=== PATIENT | male | born 1985 | race Caucasian/White ===

== ENCOUNTER 2020-10-02 11:29 | Outpatient (REF) | payer OTHER, SELFPAY ==
--- NOTE | 2020-10-02 12:00 | XR_ITS ---
EXAMINATION: XR LUMBAR SPINE XR ELBOW, RIGHT CLINICAL INFORMATION: Low back pain and right elbow pain. COMPARISON: None TECHNIQUE: 3 views lumbar spine and 3 views right elbow. FINDINGS: LUMBAR SPINE: There is normal lumbar lordosis. The vertebral heights, alignment and disc heights are normal. No visible acute fracture, dislocation or subluxation seen. No lytic or sclerotic process seen. Bilateral SI joints are symmetrical and normal. Minimal superior endplates spondylosis L3 vertebra. There is mild wedging of the T12 vertebra of indeterminate age. RIGHT ELBOW: There is no visible acute fracture, dislocation or subluxation. No abnormal joint effusion seen. The soft tissues are normal. XR/XR lumbar spine 2-3V IMPRESSION: 1. Unremarkable lumbar spine exam. 2. Unremarkable right elbow exam.
--- NOTE | 2020-10-02 12:00 | XR_ITS ---
EXAMINATION: XR LUMBAR SPINE XR ELBOW, RIGHT CLINICAL INFORMATION: Low back pain and right elbow pain. COMPARISON: None TECHNIQUE: 3 views lumbar spine and 3 views right elbow. FINDINGS: LUMBAR SPINE: There is normal lumbar lordosis. The vertebral heights, alignment and disc heights are normal. No visible acute fracture, dislocation or subluxation seen. No lytic or sclerotic process seen. Bilateral SI joints are symmetrical and normal. Minimal superior endplates spondylosis L3 vertebra. There is mild wedging of the T12 vertebra of indeterminate age. RIGHT ELBOW: There is no visible acute fracture, dislocation or subluxation. No abnormal joint effusion seen. The soft tissues are normal. XR/XR elbow RT 2V IMPRESSION: 1. Unremarkable lumbar spine exam. 2. Unremarkable right elbow exam.
[2020-10-02 12:06] LABS: MANUAL DIFF FLAG NO
[2020-10-02 12:13] LABS: Basophils Percent Auto 0.4 % (0-2); Eosinophils Absolute Auto 0.1 X10*3/uL (0.0-0.4); Hematocrit 47.7 % (42-52); Hemoglobin 15.6 g/dl (14.0-18.0); Imm Gran Abs Auto 0.06 X10*3/uL (0.00-0.03); Imm Gran Pct Auto 0.5 % (0.0-0.4); Lymphocytes Absolute Auto 2.5 X10*3/uL (1.2-4.9); Lymphocytes Percent Auto 22.1 % (20-40); Mean Corpuscular HGB Conc 32.7 g/dl (31.0-36.0); Mean Corpuscular Hemoglobin 28.6 pg (27.0-33.0); Mean Corpuscular Volume 87.5 fL (80-98); Mean Platelet Volume 10.9 fL (9.4-12.4); Monocytes Percent Auto 8.9 % (2-11); Neutrophils Absolute Auto 7.4 X10*3/uL (2.0-8.3); Neutrophils Percent Auto 67.1 % (45-73); Platelet Count 200 X10*3/uL (160-400); Red Blood Count 5.45 X10*6/uL (4.60-5.80); Red Cell Distribution Width 12.7 % (11.0-16.0); White Blood Count 11.1 X10*3/uL (4.8-10.8)
[2020-10-02 12:40] LABS: Alanine Aminotransferase 17 U/L (0-40); Albumin Level 4.3 g/dL (3.5-5.0); Alkaline Phosphatase 91 U/L (39-117); Anion Gap 12 (12-20); Aspartate Amino Transferase 13 U/L (5-37); Bilirubin Total 0.6 mg/dL (0.0-1.0); Blood Urea Nitrogen 10 mg/dL (9-16); Calcium 9.2 mg/dL (8.4-10.2); Carbon Dioxide 28 mmol/L (22-29); Chloride 105 mmol/L (96-108); Cholesterol 177 mg/dL; Estimated Glomerular Filt Rate > 60; Glucose Fasting 85 mg/dL (60-99); HDL Cholesterol 31 mg/dL; LDL Cholesterol Calculated 101 mg/dl; Potassium 4.6 mmol/l (3.3-5.1); Sodium 140 mmol/L (135-145); Triglycerides 225 mg/dL
[2020-10-02 13:17] LABS: Thyroid Stimulating Hormone 0.36 uIU/mL (0.32-4.0)
== END 2020-10-02 11:30 | disposition home or self-care (01) ==
LOC: HO.LAB 11:29
PROVIDERS: Visit Provider Internal Medicine
DX: Z00.00 Encounter for general adult medical examination without abnormal findings (principal); E11.9 Type 2 diabetes mellitus without complications; E03.9 Hypothyroidism, unspecified; M25.521 Pain in right elbow; M54.5 Low back pain
CPT/HCPCS: 36415; 72100; 73070; 80053; 80061; 84443; 85025

== ENCOUNTER 2020-12-04 13:00 | Outpatient (RCR) | payer OTHER, SELFPAY ==
--- NOTE | 2020-12-26 14:15 | MHC.PT.DC ---
[facility] [place] Office [place] Office [place] Office [address] Marimar Salazar [address] [phone] F: [phone] F: [phone] F: [phone] F: [phone] Physical Therapy Discharge Report Diagnosis: Dorsalgia Date of Surgery: Date of Evaluation: 11/29/20 Date of Discharge: 12/26/20 Treatments to Date: 1 Cancellations to Date: 0 No Shows to Date: 0 Discharge Status: Patient Elected to Stop Discharge Summary: Pt attended his initial PT eval and 1 treatment session. He has since no showed for the remainder of his scheduled visits. D/C at this time. Electronically signed by: Lucia Haq PT, DPT Please sign and return to therapist. Thank you for your referral.
== END 2020-12-26 14:16 | disposition other institution (70) ==
LOC: HO.PT 13:00
PROVIDERS: PCP Internal Medicine; Visit Provider Internal Medicine
DX: M54.9 Dorsalgia, unspecified (principal)
CPT/HCPCS: 97110; 97161; 97530

== ENCOUNTER 2021-09-12 16:50 | Emergency (ER) | payer OTHER, SELFPAY ==
[2021-09-12 17:32] VITALS: BP 156/100; PULSE 73; RESP 18; TEMP 37.2; O2SAT 96; BMI 36.3
[2021-09-12 17:34] LABS: COVID-19 Test Negative (Negative); IDNOW Serial# 9DD0AD1C
--- NOTE | 2021-09-12 18:50 | ED.HA ---
HPI - Headache General Chief Complaint: Upper Respiratory Symptoms Stated Complaint: fever headache Time Seen by Provider: 09/12/21 18:50 Source: patient Mode of arrival: ambulatory Limitations: no limitations History of Present Illness HPI Narrative: 36-year-old male with a history of back pain presents to the ER with his and granddaughter with COVID symptoms. His daughter was just found out today that she has COVID-19. He is fully vaccinated. He reports his biggest complaint is a generalized throbbing headache. He also has back pain and body aches. He has had no fevers, shortness of breath, chest pain, nausea, vomiting, diarrhea, abdominal pain. He has intermittently taken Tylenol and Motrin with brief improvement in his headache. He is eating and drinking normally MD elicited complaint: headache Onset (ago): day(s) (2) Onset description: gradually Location: generalized Severity: moderate Quality & Timing: aching and throbbing Exacerbating factors: none Relieving factors: NSAIDs Associated symptoms: diaphoresis Treatments prior to arrival: none Related Data Home Medications Medication Instructions Recorded Confirmed No Known Home Meds 10/02/20 Allergies Allergy/AdvReac Type Severity Reaction Status Date / Time No Known Allergies Allergy Verified 09/12/21 17:32 Review of Systems Review of Systems: Constitutional: No Fever, No Chills ENT/Mouth: No sore throat, No Rhinorrhea Eyes: No vision changes Cardiovascular: No Chest Pain, No SOB Respiratory: No Cough, No Sputum Gastrointestinal: No Nausea, No Vomiting, No Diarrhea, No abdominal Pain Musculoskeletal: + joint pain, + Myalgias Skin: No Skin Lesions, No rash Neuro: No Weakness, No Numbness, No Dizziness, + Headache Heme/Lymph: No Lymphadenopathy PMFSH Past Medical History Surgical History No pertinent past surgical history Family History Family History Father No problems noted. Mother No problems noted. Social History Social History Alcohol intake: never Cigarettes Per Day: 20 Advance Directives: No Advance Directives Information Provided: No Physical Exam Vital Signs: Vital Signs: Last Vital Signs Temp 98.9 F 09/12/21 17:32 Pulse 73 09/12/21 17:32 Resp 18 09/12/21 17:32 BP 156/100 H 09/12/21 17:32 Pulse Ox 96 09/12/21 17:32 BMI result Body Mass Index 36.3 Appearance: Alert. Oriented X3. No acute distress. Eyes: Pupils equal, round and reactive to light. ENT: Pharynx normal. Neck: Normal inspection. Neck supple. CVS: Normal heart rate and rhythm. Pulses normal. Respiratory: No respiratory distress. Breath sounds normal. Skin: Skin warm and dry. Normal skin color. Normal skin turgor. No rashes. Extremities: Normal inspection, normal range of motion x4. Neuro: Oriented X 3. Grossly normal, nonfocal Course Course Course Narrative: 36-year-old otherwise healthy male presents to the ER with COVID symptoms after known exposure. Luckily he is vaccinated and his symptoms are mild. Vital signs are normal in exam is unremarkable. His COVID rapid antigen test here is negative although he is here with his granddaughter with the same symptoms who is PCR test is positive. Patient has been counseled that his rapid antigen test is most likely a false negative in that he does truly have COVID-19. He was instructed to quarantine at home with his family, self monitor and not going to work. Work note provided. Stable for discharge home with supportive care. MDM - Headache Lab Data Labs: Lab Results 09/12/21 Range/Units 17:05 COVID-19 (CASIE) Negative (Negative) COVID-19 Clin Com See Note Discharge Plan Discharge Clinical Impression: COVID-19 Patient Disposition: Home, Self-Care Instructions: Covid-19 Viral Syndrome and Novel Coronavirus (ED) Hey/Ath Additional Instructions: Your rapid COVID was negative today. HOWEVER this is thought to be a FALSE NEGATIVE Because of your symptoms and your close contact to your granddaughter who has COVID you should treat and isolate at home as though you are COVID POSITIVE. Do not go to work for 5 days, if your symptoms are resolved in 5 days you can go back to work with a mask. If your symptoms persist after 5 days, do not go back to work until of your symptoms are gone Take Motrin and Tylenol for headaches and body aches. Prescriptions: No Action No Known Home Meds RF: 0 Stand Alone Forms: Work/School Release Interventions: ED Discharge Assessment Last Done: 09/12/21 19:19 Discharge Date/Time: 09/12/21 19:19
== END 2021-09-12 19:19 | disposition home or self-care (01) ==
PROVIDERS: Emergency Provider Internal Medicine; PCP Hospitalist
DX: U07.1 COVID-19 (principal); R51.9 Headache, unspecified
CPT/HCPCS: 36415; 87635; 99282; 99283

== ENCOUNTER 2022-03-30 07:23 | Outpatient (REF) | payer OTHER, SELFPAY ==
[2022-03-30 07:45] LABS: MANUAL DIFF FLAG NO
[2022-03-30 07:55] LABS: Basophils Absolute Auto 0.1 X10*3/uL (0.0-0.2); Basophils Percent Auto 0.5 % (0-2); Eosinophils Absolute Auto 0.1 X10*3/uL (0.0-0.4); Eosinophils Percent Auto 1.1 % (0-4); Hemoglobin 15.2 g/dl (14.0-18.0); Imm Gran Abs Auto 0.05 X10*3/uL (0.00-0.03); Imm Gran Pct Auto 0.4 % (0.0-0.4); Lymphocytes Absolute Auto 2.2 X10*3/uL (1.2-4.9); Lymphocytes Percent Auto 19.7 % (20-40); Mean Corpuscular HGB Conc 32.3 g/dl (31.0-36.0); Mean Corpuscular Hemoglobin 27.5 pg (27.0-33.0); Mean Corpuscular Volume 85.1 fL (80.0-98.0); Mean Platelet Volume 10.7 fL (9.4-12.4); Monocytes Absolute Auto 0.9 X10*3/uL (0.1-1.2); Neutrophils Percent Auto 70.3 % (45-73); Platelet Count 193 X10*3/uL (160-400); Red Blood Count 5.52 X10*6/uL (4.60-5.80); Red Cell Distribution Width 13.6 % (11.0-16.0); White Blood Count 11.3 X10*3/uL (4.8-10.8)
[2022-03-30 08:20] LABS: Alanine Aminotransferase 24 U/L (0-40); Albumin Level 4.2 g/dL (3.5-5.0); Alkaline Phosphatase 120 U/L (39-117); Anion Gap 10 (12-20); Aspartate Amino Transferase 15 U/L (5-37); Bilirubin Total 0.3 mg/dL (0.0-1.0); Blood Urea Nitrogen 12 mg/dL (9-16); Calcium 8.7 mg/dL (8.4-10.2); Carbon Dioxide 28 mmol/L (22-29); Chloride 108 mmol/L (96-108); Cholesterol 215 mg/dL; Estimated Glomerular Filt Rate > 60; Glucose Fasting 100 mg/dL (60-99); HDL Cholesterol 30 mg/dL; Potassium 4.5 mmol/L (3.3-5.1); Rheumatoid Factor < 15.0 IU/mL (<15.0); Sodium 141 mmol/L (135-145); Total Protein 7.2 g/dL (6.5-8.0); Triglycerides 574 mg/dL
[2022-03-30 08:43] LABS: Erythrocyte Sedimentation Rate 11 MM/HR (0-15)
[2022-04-01 14:18] LABS: CRP High Sensitivity 7.2 mg/L
[2022-04-01 16:11] LABS: Cyclic Citrullinated Peptide <16 UNITS
[2022-04-01 17:56] LABS: Anti DNA DS Antibody <1 IU/mL
[2022-04-01 18:56] LABS: Anti Nuclear Antibody Screen NEGATIVE (NEGATIVE)
== END 2022-03-30 07:24 | disposition home or self-care (01) ==
LOC: HO.LAB 07:23
PROVIDERS: PCP Internal Medicine; Visit Provider Internal Medicine
DX: E78.5 Hyperlipidemia, unspecified (principal); E78.1 Pure hyperglyceridemia; D64.9 Anemia, unspecified; G89.29 Other chronic pain; M25.50 Pain in unspecified joint; M54.9 Dorsalgia, unspecified; R40.0 Somnolence
CPT/HCPCS: 36415; 80053; 80061; 85025; 85652; 86038; 86039; 86141; 86200; 86225; 86431

== ENCOUNTER → 2022-04-23 10:42 | Outpatient (BNVA) | payer OTHER, SELFPAY | PROVIDERS: PCP Internal Medicine; Visit Provider Psychiatry & Neurology Neurology | DX: R06.83 Snoring (principal); G47.8 Other sleep disorders; R56.9 Unspecified convulsions; R06.81 Apnea, not elsewhere classified; R40.0 Somnolence | CPT/HCPCS: 99202 ==

== ENCOUNTER 2022-04-29 12:41 | Outpatient (REF) | payer OTHER, SELFPAY ==
--- NOTE | 2022-04-29 12:44 | EEG_ITS ---
This is a 16-channel EEG with an EKG lead. The patient is reported awake and drowsy during the tracing. Background EEG rhythm is low amplitude fast with no obvious asymmetry or paroxysmal tendency. The patient transitioned in and out of drowsiness. No sharp wave spikes or paroxysmal tendency noted. Cardiac lead does not reveal any significant abnormality. Photic stimulation did not produce any significant driving. Hyperventilation is not performed. Cardiac lead does not reveal any significant abnormality. IMPRESSION: Unremarkable EEG. MD MELL Alvarado/CALRIBEL / [id number]
== END 2022-04-29 12:42 | disposition home or self-care (01) ==
LOC: HO.NEURO 12:41
PROVIDERS: PCP Internal Medicine; Visit Provider Internal Medicine
DX: R56.9 Unspecified convulsions (principal); Z87.898 Personal history of other specified conditions
CPT/HCPCS: 95816

== ENCOUNTER → 2022-05-11 19:30 | Outpatient (REF) | payer OTHER, SELFPAY | LOC: HO.SL 19:30 | PROVIDERS: PCP Internal Medicine; Visit Provider Psychiatry & Neurology Neurology | DX: G47.33 Obstructive sleep apnea (adult) (pediatric) (principal) | CPT/HCPCS: 95811 ==

== ENCOUNTER → 2022-05-20 09:47 | Outpatient (BNVA) | payer OTHER, SELFPAY | PROVIDERS: PCP Internal Medicine; Visit Provider Psychiatry & Neurology Neurology | DX: R56.9 Unspecified convulsions (principal); G47.33 Obstructive sleep apnea (adult) (pediatric) | CPT/HCPCS: 99212 ==

== ENCOUNTER 2022-06-01 18:06 | Outpatient (REF) | payer OTHER, SELFPAY ==
--- NOTE | ~2022-06-01 | MR_ITS ---
EXAMINATION: MR BRAIN WITHOUT CONTRAST CLINICAL INFORMATION: Convulsions. COMPARISON: None available. TECHNIQUE: MRI of the brain was obtained using routine sequences without contrast. FINDINGS: No focal restricted diffusion is demonstrated to suggest acute or subacute cerebral ischemia. No evidence of acute or chronic hemorrhagic products on heme-sensitive imaging. Normal parenchymal signal characteristics. The ventricles are normal in morphology and size. No abnormal mass effect. No midline shift. The hippocampi are symmetric in size, contour, and signal intensity. The temporal horns appear symmetric. Normal appearance of the pituitary gland. Normal positioning of the cerebellar tonsils. Normal arterial and venous vascular flow voids are present. Normal, homogeneous marrow signal. Mild mucosal thickening of the paranasal sinuses. No signal abnormalities within the mastoids. MR/MR head/brain wo con IMPRESSION: 1. No acute intracranial abnormalities. 2. No MRI abnormalities to explain the patient's spells.
== END 2022-06-01 18:07 | disposition home or self-care (01) ==
LOC: HO.MRI 18:06
PROVIDERS: Visit Provider Psychiatry & Neurology Neurology
DX: R56.9 Unspecified convulsions (principal); R06.81 Apnea, not elsewhere classified
CPT/HCPCS: 70551

== ENCOUNTER → 2022-07-23 12:27 | Outpatient (BNVA) | payer OTHER, SELFPAY | PROVIDERS: PCP Internal Medicine; Visit Provider Psychiatry & Neurology Neurology | DX: R56.9 Unspecified convulsions (principal); G47.33 Obstructive sleep apnea (adult) (pediatric) | CPT/HCPCS: 99212 ==

== ENCOUNTER 2022-09-23 10:00 | Emergency (ER) | payer OTHER, SELFPAY ==
[2022-09-23 10:21] VITALS: BP 149/96; PULSE 71; RESP 18; TEMP 36.4; O2SAT 97; BMI 39.0
--- NOTE | 2022-09-23 10:54 | PC.NURSE ---
patient a/ox4 . brett . heart rate regular at 78 beats per minute . breathing even and unlabored . lungs clear throughout . skin pink warm and dry .abdomen soft , not tender . positive bowel sounds throughout . patient reports headache that started 5 days ago and reports pain level 10 out of 10 . patient aware of plan of care .
--- NOTE | 2022-09-23 11:22 | ED.HA ---
HPI - Headache General Chief Complaint: Headache Stated Complaint: headache, dizzy Time Seen by Provider: 09/23/22 10:49 Source: patient Mode of arrival: ambulatory Limitations: no limitations History of Present Illness HPI Narrative: 37-year-old male with past medical history of ZHANG, seizure disorder, and anxiety presents to the emergency department with complaints of a for headache x4 days with intermittent dizziness. He states he uses a CPAP machine for his ZHANG, however; he has not used his CPAP in greater than 1 week. He describes his headache as pressure and occasional throbbing all over his head. He denies any eye pain, injury, vision changes, light sensitivity, or double vision. He denies any recent illness, nausea, vomiting, chest pain, shortness of breath, fever, chills. 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 MD elicited complaint: headache Onset (ago): day(s) (4) Onset description: gradually Location: diffuse Severity: moderate Quality & Timing: throbbing and pressure Exacerbating factors: none Relieving factors: rest, NSAIDs and dark room Treatments prior to arrival: none Related Data Home Medications Medication Instructions Recorded Confirmed bupropion HCl 150 mg tablet,12 hr 150 mg PO DAILY 07/23/22 07/23/22 sustained-release Previous Rx's Medication Instructions Recorded omeprazole 20 mg capsule,delayed 20 mg PO DAILY 90 days #90 caps 03/30/22 release citalopram 10 mg tablet 10 mg PO DAILY 90 days #90 tabs 05/23/22 fenofibrate 54 mg tablet 54 mg PO DAILY 90 days #90 tabs 06/02/22 [id number]-txpjfqigeobny-npuchura 1 tab PO Q6H PRN pain #10 tabs 09/23/22 50 mg-325 mg-40 mg tablet Allergies Allergy/AdvReac Type Severity Reaction Status Date / Time No Known Allergies Allergy Verified 09/23/22 10:24 Review of Systems Review of Systems: In addition to documented HPI above, the additional ROS was obtained: Constitutional: No Weight loss, No Fever, No Chills ENT/Mouth: No Ear Pain, No Nasal Congestion, No Sinus Pain, No Hoarseness, No sore throat, No Rhinorrhea, No Swallowing Difficulty Cardiovascular: No Chest Pain, No SOB Respiratory: No Cough, No Sputum, No Wheezing Gastrointestinal: No Nausea, No Vomiting, No Diarrhea, No Constipation, No Abdominal pain Genitourinary: No Dysuria, No Urinary Frequency, No Hematuria, No Urinary Incontinence/retention, No Urgency, No Flank Pain Musculoskeletal: No joint pain, No Myalgias, No Joint Swelling Skin: No Skin Lesions, No rash Neuro: No Weakness, No Numbness, No Paresthesias Yes all other systems are reviewed and are negative PMFSH Past Medical History Attestation statement: The following information was validated with the patient. Source: old records reviewed Medical History History of seizures Surgical History No pertinent past surgical history Family History Family History Father Coronary artery disease Mother Coronary artery disease Social History Social History Housing: House Alcohol intake: never Patient Tobacco Use Status: Current everyday Tobacco user Cigarette Packs Per Day: 1.5 Cigarettes Per Day: 30 Smoked in Last 30 Days: Yes e-Cigarette/Vaping Use: Never Used Substance Use Type: Marijuana Advance Directives: No Advance Directives Information Provided: No Current occupational status: unemployed Cognitive needs: No Hearing needs: No Vision needs: Yes Physical Exam Vital Signs: Vital Signs: Last Vital Signs Temp 99.0 F 09/23/22 11:50 Pulse 74 09/23/22 11:50 Resp 16 09/23/22 11:50 BP 168/89 H 09/23/22 11:50 Pulse Ox 98 09/23/22 11:50 O2 Del Method 09/23/22 11:50 BMI result Body Mass Index 39.0 Nursing notes and vital signs reviewed. GENERAL APPEARANCE: A&0 x 4, generally well appearing, no acute distress HENMT: Normal to inspection, atraumatic, face symmetrical. Normal external ears, nose, and oropharynx clear. EYE: PERRLA, EOM intact, structures appear normal NECK: Supple without lymphadenopathy. No stiffness or restricted ROM. CHEST: Normal to inspection HEART: Normal rate and regular rhythm, normal S1/S2, no M/R/G LUNGS: LS CTA, moving air well. Able to speak in complete sentences. No crackles, wheezes, or rhonchi auscultated ABDOMEN: Soft, nontender, nondistended. Normal bowel sounds noted BACK: No CVAT, no obvious deformity EXTREMITIES: Moving all extremities without difficulty. No cyanosis, clubbing, or edema. Normal capillary refill. NEUROLOGICAL: Alert and oriented, moving all 4 extremities with equal strength. CN not formally tested but appearing grossly intact. Observed to ambulate with normal gait. Cognition normal SKIN: Warm and dry without any lesions, rash, or visible sores PSYCH: Cooperative, normal affect, normal thought process Course Course Course Narrative: 1030: Plan to rule in/out influenza, COVID, RSV. Plan for Fioricet Medications Administered Discontinued Medications Generic Name Dose Route Start Last Admin Trade Name Freq PRN Reason Stop Dose Admin Acetaminophen/Butalbital/Caffeine 1 tab 09/23/22 11:20 09/23/22 11:29 Butalb/Acetamin/Caff 50/325/40 Tablet PO 09/23/22 11:21 1 tab ONCE ONE Administration Medical Decision Making Medical Decision Making [facility] Narrative: 37-year-old male with past medical history of ZHANG, seizure disorder, and anxiety presents to the emergency department with complaints of a for headache x4 days with intermittent dizziness. He states he uses a CPAP machine for his ZHANG, however; he has not used his CPAP in greater than 1 week. Serology negative for influenza a/B, RSV, and COVID-19. Fioricet given in the emergency department with good relief of symptoms per patient. History and physical exam consistent with migraine headache as he has had this headache for greater than 4 days and symptoms were relieved by Fioricet. Low suspicion for ACS, PE, stroke. Patient is safe for discharge at this time with plan for [id number] Excedrin migraine or Motrin for management of discomfort. Educated on importance of CPAP use as having uncontrolled ZHANG can cause headache, high blood pressure, and several other physical symptoms. HPI, PE, diagnostics, and plan discussed with patient with no unanswered questions at this time. Patient educated to return to the emergency department with new, worsening, or concerning emergent symptoms. Recommended to follow-up with her primary care provider for further treatment and management. *Refer to Course for additional information on consultations, diagnostic interpretation, consultations, emergency department stay, conversations with patient and family, shared decision making with patient, and more information on medical decision making* Lab Data Labs: Lab Results 09/23/22 Range/Units 10:34 Influenza Type A (PCR) NEGATIVE (Negative) Influenza Type B (PCR) NEGATIVE (Negative) RSV RNA Qual (PCR) NEGATIVE (Negative) SARS-CoV-2 RNA (RT-PCR) NEGATIVE (Negative) Discharge Plan Discharge Clinical Impression: Headache Patient Disposition: Home, Self-Care Instructions: Acute Headache (ED) Additional Instructions: Your nasal swab is negative for influenza, RSV, and COVID-19. Your history and physical exam are consistent with a migraine headache as urine take his lasted more than 4 days. You have been given and medication called Fioricet which has helped relieve your headache. Fioricet has been prescribed to your preferred pharmacy. Please take this medication as prescribed. Please return to the emergency department with new, worsening, or concerning emergent symptoms. Recommended to follow-up the primary care provider for further treatment and management. Prescriptions: New [id number]-wggjrqcvdnazl-hzdr 50-325-40 mg tablet 1 tab PO Q6H PRN (Reason: pain) Qty: 10 0RF No Action omeprazole 20 mg capsule,delayed release(DR/EC) 20 mg PO DAILY 90 Days Qty: 90 1RF citalopram 10 mg tablet 10 mg PO DAILY 90 Days Qty: 90 1RF fenofibrate 54 mg tablet 54 mg PO DAILY 90 Days Qty: 90 1RF bupropion HCl 150 mg tablet sustained-release 12 hr 150 mg PO DAILY Referrals: Pretty Morris MD [Primary Care Provider] - Stand Alone Forms: Work/School Release Interventions: ED Discharge Assessment Last Done: 09/23/22 13:06 Discharge Date/Time: 09/23/22 13:07 Print Language: Paragu[place]
[2022-09-23] MEDS: Butalb/Acetamin/Caff 50/325/40 TABLET 1 TAB PO (11:29)
[2022-09-23 11:30] LABS: Influenza A PCR NEGATIVE (Negative); Influenza B PCR NEGATIVE (Negative); Resp Syncy Virus RNA Qual PCR NEGATIVE (Negative); SARS COV2 PCR INHOUSE NEGATIVE (Negative)
[2022-09-23 11:50] VITALS: BP 168/89; PULSE 74; RESP 16; TEMP 37.2; O2SAT 98
== END 2022-09-23 13:07 | disposition home or self-care (01) ==
PROVIDERS: Emergency Provider Student in an Organized Health Care Education/Training Program; PCP Internal Medicine
DX: R51.9 Headache, unspecified (principal); R42 Dizziness and giddiness; F17.210 Nicotine dependence, cigarettes, uncomplicated; Z20.828 Contact with and (suspected) exposure to other viral communicable diseases; Z20.822 Contact with and (suspected) exposure to COVID-19; Z71.6 Tobacco abuse counseling; Z79.899 Other long term (current) drug therapy
CPT/HCPCS: 0241U; 99283; 99284